=== PATIENT | male | born 1965 | race Caucasian/White ===

== ENCOUNTER 2018-11-16 14:38 | Outpatient (CLI) ==
--- NOTE | 2018-11-16 15:00 | DI ---
EXAM: Two views of the chest. History: Cough. Findings: Heart size is normal. No focal consolidation. No appreciable pleural fluid and no pneumo thorax. No acute osseous abnormalities. Impression: No acute cardiopulmonary process
== END 2018-11-16 14:39 | disposition home or self-care (01) ==
LOC: LAB 14:38
PROVIDERS: ATTEND Family Medicine
DX: R05 Cough (principal); R06.2 Wheezing
CPT/HCPCS: 87502

== ENCOUNTER 2018-11-16 14:46 | Outpatient (CLI) | END 2018-11-16 14:47 | disposition home or self-care (01) | LOC: RHC-LAB 14:46 → FCC-LAB 14:47 | PROVIDERS: ATTEND Family Medicine | DX: R05 Cough (principal); R06.2 Wheezing ==